=== PATIENT | female | born 1995 | race Caucasian/White ===

== ENCOUNTER 2018-04-21 11:45 | Inpatient (IN) | payer OTHER ==
[~2018-04-21] VITALS: Ht 160 cm; Wt 122.5 kg
[~2018-04-21 11:45] MED LIST: AMOXICILLIN500 MG PO; BEYAZ PO; DOCUSATE SODIU100 MG PO; MOTRIN 800MG T800 MG PO; PERCOCET 325 MG1 TA2 PO; SULFAMETH/TRIME1 TA2 PO; ZOFRAN 4 MG TABL4 MG PO; ZOFRAN4 M1 SL
[2018-04-21 12:23] VITALS: BP 130/71
[2018-04-21 13:22] LABS: ABSOLUTE BASOPHIL COUNT 0 /CUMM (0.0-0.2); ABSOLUTE EOSINOPHIL COUNT 0 /CUMM (0.0-0.7); ABSOLUTE GRANULOCYTE CT 5.6 /CUMM (1.4-6.5); ABSOLUTE LYMPH COUNT 1.7 /CUMM (1.2-3.4); ABSOLUTE MONOCYTE COUNT 0.3 /CUMM (0.10-0.60); BASOPHIL % 0.4 % (0.0-2.0); EOSINOPHIL % 0.4 % (0-5); GRANULOCYTE % 72.3 % (42.2-75.2); HEMATOCRIT 29.2 % (37-47); MEAN CORPUSCULAR HGB 24.4 PG (27.0-31.0); MEAN CORPUSCULAR HGB CONC 32.4 G/DL (33.0-37.0); MEAN CORPUSCULAR VOLUME 75.4 FL (81.0-99.0); MEAN PLATELET VOLUME 10.5 FL (7.4-10.4); PLATELET COUNT 175 /CUMM (130-400); RBC DISTRIBUTION WIDTH 16.9 % (11.5-14.5); RED BLOOD CELL CT 3.88 /CUMM (4.20-5.40); WHITE BLOOD CELL COUNT 7.7 /CUMM (4.8-10.8)
--- NOTE | 2018-04-22 05:36 | Labor & Delivery Summary ---
Delivery Summary Vaginal Delivery: Vaginal: spontaneous (VTX) Episiotomy/Lacerations: Type: 2ND DEGREE Repair: 3 O Anesthesia: LOCAL BLOCK BUPIVICAINE Placenta: Placenta: spontanteous, normal, 3 vessel, nuchal cord (x_), 30 PERCENT ABRUPTION SENT TO PATHOLOGY AWAIT RESULTS Anesthesia: block Baby's Weight: 8 LBS 4OZ Additional Comments: WITH SINGLE PUSH DANDY CAN X1 REDUCIBLE 3 VESSEL CORD PLACENTA BY CCT QUESTION OF 30 PERCENT ABRUPTION MALE INFANT 8 LBS 4OZ 2ND DEGREE LACERATION REPAIRED IN LAYER SWITH 30 UNDER LOCAL B+
[2018-04-23 08:46] LABS: ABSOLUTE BASOPHIL COUNT 0 /CUMM (0.0-0.2); ABSOLUTE EOSINOPHIL COUNT 0.1 /CUMM (0.0-0.7); ABSOLUTE GRANULOCYTE CT 4.2 /CUMM (1.4-6.5); ABSOLUTE LYMPH COUNT 2.7 /CUMM (1.2-3.4); ABSOLUTE MONOCYTE COUNT 0.3 /CUMM (0.10-0.60); BASOPHIL % 0.6 % (0.0-2.0); EOSINOPHIL % 0.7 % (0-5); GRANULOCYTE % 58.2 % (42.2-75.2); MEAN CORPUSCULAR HGB 24.3 PG (27.0-31.0); MEAN CORPUSCULAR HGB CONC 32.3 G/DL (33.0-37.0); MEAN CORPUSCULAR VOLUME 75.1 FL (81.0-99.0); MEAN PLATELET VOLUME 10.6 FL (7.4-10.4); PLATELET COUNT 152 /CUMM (130-400); RBC DISTRIBUTION WIDTH 17.4 % (11.5-14.5); RED BLOOD CELL CT 3.08 /CUMM (4.20-5.40); WHITE BLOOD CELL COUNT 7.3 /CUMM (4.8-10.8)
[2018-04-23 09:10] LABS: HEMATOCRIT 23.1 % (37-47)
[2018-04-23 18:29] LABS: ABSOLUTE BASOPHIL COUNT 0 /CUMM (0.0-0.2); ABSOLUTE EOSINOPHIL COUNT 0 /CUMM (0.0-0.7); ABSOLUTE GRANULOCYTE CT 5.7 /CUMM (1.4-6.5); ABSOLUTE LYMPH COUNT 2.5 /CUMM (1.2-3.4); ABSOLUTE MONOCYTE COUNT 0.3 /CUMM (0.10-0.60); BASOPHIL % 0.3 % (0.0-2.0); EOSINOPHIL % 0.5 % (0-5); GRANULOCYTE % 66.8 % (42.2-75.2); HEMATOCRIT 26.1 % (37-47); MEAN CORPUSCULAR HGB 24.5 PG (27.0-31.0); MEAN CORPUSCULAR HGB CONC 32.1 G/DL (33.0-37.0); MEAN CORPUSCULAR VOLUME 76.4 FL (81.0-99.0); MEAN PLATELET VOLUME 10.6 FL (7.4-10.4); PLATELET COUNT 195 /CUMM (130-400); RBC DISTRIBUTION WIDTH 17.4 % (11.5-14.5); RED BLOOD CELL CT 3.42 /CUMM (4.20-5.40); WHITE BLOOD CELL COUNT 8.5 /CUMM (4.8-10.8)
--- NOTE | 2018-04-24 08:34 | History & Physical Pre-Op ---
General Information and HPI History of Present Illness: 22yo at 41 week for IOL. Poor Prasad score. care complete and unremarkable. Allergies/Medications Allergies: Coded Allergies: NO KNOWN ALLERGIES (03/30/15) Home Med list Docusate Sodium 100 MG SGL 100 MG PO BID PRN STOOL SOFTENER OXYCODONE HCL/ACETAMINOPHEN (Percocet 5-325 MG Tablet) 325 MG/5 MG TAB 1 TAB PO Q3P PRN PAIN SCALE 7-10 Yibuprofen (Motrin 800MG Tab) 800 MG TAB 800 MG PO Q6P PRN PAIN SCALE 4-6 Past History Medical History Neurological: NONE EENT: NONE Cardiovascular: NONE Respiratory: NONE Gastrointestinal: NONE Hepatic: NONE Renal: NONE Musculoskeletal: fracture Psychiatric: NONE Endocrine: NONE Blood Disorders: NONE Cancer(s): NONE BOSS [employer]ER/Reproductive: Surgical History Pertinent Surgical History: N Past Family/Social History Psychosocial History Smoking Status: Never Smoked Review of Systems Review of Systems Constitutional: Reports: no symptoms. EENTM: Reports: no symptoms. Cardiovascular: Reports: no symptoms. Respiratory: Reports: no symptoms. GI: Reports: no symptoms. Genitourinary: Reports: no symptoms. Musculoskeletal: Reports: no symptoms. Skin: Reports: no symptoms. Neurological/Psychological: Reports: no symptoms. Hematologic/Endocrine: Reports: no symptoms. Immunologic/Allergic: Reports: no symptoms. All Other Systems: Reviewed and Negative Exam & Diagnostic Data Last 24 Hrs of Vital Signs/I&O vss Physical Exam: HEENT: NCAT Chest: CTA CV: nl S1S2 Abd: gravid, cephalic, EFW 8 Cx: LTCP Ext: no c/c/e Assessment/Plan Assessment/Plan: 41 week poor prasad score Miso cervical ripening As Ranked By This Provider Problem List: 1.
--- NOTE | 2018-04-24 08:36 | PN- Post Delivery/GYN ---
Subjective Subjective: no c/o Review of Systems: neg Objective Last 24 Hrs of Vital Signs/I&O vss Assessment/Plan Assessment/Plan s/p ppd1 stable discharge home Problem List: 1.
[2018-04-24] MEDS ORDERED: IBUPROFEN800 M1 PO (08:39)
[2018-04-24] MEDS ORDERED: DOCUSATE SODIU100 M3 PO (08:39)
== END 2018-04-24 10:15 | DRG 560 ==
LOC: GNO 11:45
PROVIDERS: Obstetrics & Gynecology; Specialist
PROC: 0KQM0ZZ Repair Perineum Muscle, Open Approach (ICD-10-PCS; principal; 2018-04-22)
PROC: 10E0XZZ Delivery of Products of Conception, External Approach (ICD-10-PCS; 2018-04-22)
DX: O48.0 Post-term pregnancy (principal); Z3A.41 41 weeks gestation of pregnancy; Z37.0 Single live birth; O70.1 Second degree perineal laceration during delivery
CPT/HCPCS: GNOP; GNOS; 36415; 81001; 88307; J0290; J0595